=== PATIENT | female | born 1975 | race Caucasian/White ===

== ENCOUNTER 2016-11-25 09:34 | Emergency (ER) | payer BC ==
[2015-09-22 07:12] VITALS: BMI 23.5
[~2016-11-25 09:34] MED LIST: HYDROCODONE-APA1 TAB PO; IBUPROFEN400 MG PO
[2016-11-25 11:06] LABS: BASOPHILS 0.3 % (0-2); EOSINOPHILS 3.9 % (0-7); HEMATOCRIT 39.7 % (36.0-48.0); HEMOGLOBIN 13.5 g/dL (12-16); IMMATURE GRANULOCYTES 0.2 % (0-5); LYMPHOCYTES 27.4 % (15-50); MCH 31.5 pg (26.0-34.0); MCV 92.5 fL (80.0-100.0); MEAN PLATELET VOLUME 10.5 fL (7.4-10.4); MONOCYTES 4.6 % (2-11); NEUTROPHILS 63.6 % (40-80); PLATELET COUNT 251 10x3/uL (130-400); RBC 4.29 10x6/uL (4.00-5.40); RDW 12.8 % (11.5-14.5); WBC 6.1 10x3/uL (4.8-10.8)
[2016-11-25 11:19] LABS: ALBUMIN 4.1 g/dL (3.4-5.0); ALKALINE PHOSPHATASE 67 U/L (46-116); ALT (SGPT) 41 U/L (10-68); BILIRUBIN - TOTAL 0.39 mg/dL (0.2-1.3); CALC OSMOLALITY 277 mosm/kg (275-300); CALCIUM 9.6 mg/dL (8.5-10.1); CARBON DIOXIDE 29.4 mmol/L (21.0-32.0); CHLORIDE - SERUM 102 mmol/L (98-107); CREATININE - SERUM 0.8 mg/dL (0.6-1.3); GLUCOSE 99 mg/dL (74-106); PROTEIN - SERUM 7.4 g/dL (6.4-8.2); SODIUM 139 mmol/L (136-145); UREA NITROGEN 12 mg/dL (7-18); eGFR NON AFRICAN AMERICAN 84 mL/min (90-120)
[2016-11-25 11:25] LABS: C-REACTIVE PROTEIN < 0.2 mg/dL (0.0-0.9)
== END 2016-11-25 12:28 | disposition home or self-care (01) ==
LOC: D.ER 09:34
PROVIDERS: Physician Assistant
DX: M25.562 Pain in left knee (principal); Z98.890 Other specified postprocedural states

== ENCOUNTER 2017-07-29 17:45 | Emergency (ER) | payer BC ==
[2015-09-22 07:12] VITALS: BMI 23.5
== END 2017-07-29 20:57 | disposition home or self-care (01) ==
LOC: D.ER 17:45
DX: M25.562 Pain in left knee (principal); S89.92XA Unspecified injury of left lower leg, initial encounter; X58.XXXA Exposure to other specified factors, initial encounter; Y93.89 Activity, other specified; Y92.019 Unspecified place in single-family (private) house as the place of occurrence of the external cause

== ENCOUNTER 2017-12-04 11:39 | Emergency (ER) | payer BC ==
[2015-09-22 07:12] VITALS: BMI 23.5
[2017-12-04 12:21] LABS: APPEARANCE HAZY (CLEAR); BILIRUBIN NEGATIVE (NEGATIVE); COLOR YELLOW (YELLOW); GLUCOSE NEGATIVE (NEGATIVE); KETONE NEGATIVE (NEGATIVE); NITRITE NEGATIVE (NEGATIVE); PROTEIN NEGATIVE (NEGATIVE); UROBILINOGEN NORMAL (NORMAL)
[2017-12-04 12:22] LABS: BACTERIA MANY /hpf (NONE SEEN); EPITHELIAL CELLS 0-5 /hpf (0-5); MUCUS <1+ /lpf (NONE SEEN); RED CELLS - URINE NONE SEEN /hpf (0-5); WHITE CELLS - URINE 0-5 /hpf (0-5)
== END 2017-12-04 13:00 | disposition home or self-care (01) ==
LOC: D.ER 11:39
PROVIDERS: Family Medicine
DX: S39.012A Strain of muscle, fascia and tendon of lower back, initial encounter (principal); X50.0XXA Overexertion from strenuous movement or load, initial encounter; Y93.89 Activity, other specified; Y92.89 Other specified places as the place of occurrence of the external cause; F17.200 Nicotine dependence, unspecified, uncomplicated

== ENCOUNTER 2018-05-02 09:52 | Emergency (ER) | payer BC ==
[~2018-05-02] VITALS: Ht 170.2 cm; Wt 75.0 kg
[2018-05-02 09:56] VITALS: BP 152/84; Ht 170.2 cm; Wt 75.0 kg
[2018-05-02] MEDS ORDERED: VOLTAREN75 MG PO (10:18)
[2018-05-02] MEDS ORDERED: ULTRAM50 MG PO (10:24)
== END 2018-05-02 11:05 | disposition home or self-care (01) ==
LOC: D.ER 09:52
DX: G89.29 Other chronic pain (principal); M25.562 Pain in left knee; F17.200 Nicotine dependence, unspecified, uncomplicated